=== PATIENT | female | born 1960 | race Caucasian/White ===

== ENCOUNTER 2020-07-05 17:38 | Outpatient (REF) | payer MEDICARE, MEDICAID, SELFPAY ==
--- NOTE | 2020-07-05 | MM_ITS ---
EXAMINATION: MM SCREENING DIGITAL BREAST TOMOSYNTHESIS, BILATERAL CLINICAL INFORMATION: Screening. Asymptomatic. Prior outside right stereotactic biopsy 2012. The lifetime risk of breast cancer based on the Tyrer-Cuzick Model is 13%. COMPARISON: Mammography: 12/15/2018, 12/13/2017, 12/10/2016 TECHNIQUE: Digital breast tomosynthesis is performed in both the craniocaudal and mediolateral oblique views along with computer-aided detection (CAD). Synthesized 2D images are generated from the tomosynthesis. FINDINGS: There are scattered areas of fibroglandular density (ACR BI-RADS breast composition Category b). There is no developing density or interval mass or architectural abnormality. Biopsy clip marker right breast upper outer quadrant with adjacent punctate regional calcifications are again seen. The axilla and skin contours are unremarkable. There are no significant changes from prior studies. MM/MM tomosynthesis screening BI IMPRESSION: No significant changes from prior exams. ASSESSMENT: BI-RADS 2: Benign RECOMMENDATION: Routine annual mammography screening. This patient's information was entered into a reminder system with a target due date for their next mammogram.
== END 2020-07-05 17:39 | disposition home or self-care (01) ==
LOC: HO.MAMMO 17:38
PROVIDERS: Visit Provider Family Medicine
DX: Z12.31 Encounter for screening mammogram for malignant neoplasm of breast (principal)
CPT/HCPCS: 77063; 77067

== ENCOUNTER 2020-08-03 12:32 | Outpatient (REF) | payer MEDICARE, MEDICAID, SELFPAY ==
[2020-08-03 14:11] LABS: Glucose Urine UA NEG (NEG); Leukocyte Esterase Urine 2+ (NEG); Nitrite Urine NEG (NEG); PH 6.5 (5.0-8.0); Specific Gravity - Urine <= 1.005 (1.005-1.025); Urine Blood 3+ (NEG); Urine Ketones NEG (NEG); Urine Protein NEG (NEG-TRACE)
[2020-08-03 14:14] LABS: Appearance Urine HAZY; Color Urine YELLOW
[2020-08-03 14:40] LABS: Bacteria Urine 1+ /LPF
== END 2020-08-03 12:33 | disposition home or self-care (01) ==
LOC: HO.LAB 12:32
PROVIDERS: PCP Family Medicine; Visit Provider Psychiatry & Neurology Neurology
DX: G35 Multiple sclerosis (principal)
CPT/HCPCS: 81001; 81003; 87086; 87088; 87186

== ENCOUNTER 2021-07-07 10:55 | Outpatient (REF) | payer MEDICARE, MEDICAID, SELFPAY ==
--- NOTE | ~2021-07-07 | MM_ITS ---
EXAMINATION: MM SCREENING DIGITAL BREAST TOMOSYNTHESIS, BILATERAL CLINICAL INFORMATION: Screening. Asymptomatic. The lifetime risk of breast cancer based on the Tyrer-Cuzick Model is 19%. COMPARISON: Mammography: 07/05/2020, 12/15/2018, 12/13/2017 TECHNIQUE: Digital breast tomosynthesis is performed in both the craniocaudal and mediolateral oblique views along with computer-aided detection (CAD). Synthesized 2D images are generated from the tomosynthesis. FINDINGS: There are scattered areas of fibroglandular density (ACR BI-RADS breast composition Category b). There are no significant masses, abnormal calcifications, or other abnormalities. Biopsy clip marker again seen right breast mid upper outer quadrant with some stable adjacent calcifications. There are some other scattered benign round and coarse and vascular calcifications in both breasts. The axilla and skin contours are unremarkable. MM/MM tomosynthesis screening BI IMPRESSION: No mammographic evidence of malignancy. ASSESSMENT: BI-RADS 2: Benign RECOMMENDATION: Routine annual mammography screening. This patient's information was entered into a reminder system with a target due date for their next mammogram.
== END 2021-07-07 10:56 | disposition home or self-care (01) ==
LOC: HO.MAMMO 10:55
PROVIDERS: Visit Provider Family Medicine
DX: Z12.31 Encounter for screening mammogram for malignant neoplasm of breast (principal)
CPT/HCPCS: 77063; 77067

== ENCOUNTER 2022-07-17 14:07 | Outpatient (REF) | payer MEDICARE, MEDICAID, SELFPAY ==
--- NOTE | ~2022-07-17 | MM_ITS ---
EXAMINATION: MM SCREENING DIGITAL BREAST TOMOSYNTHESIS, BILATERAL CLINICAL INFORMATION: Screening. Asymptomatic. The lifetime risk of breast cancer based on the Tyrer-Cuzick Model is 10%. COMPARISON: Mammography: 07/07/2021, 07/05/2020, 12/15/2018 TECHNIQUE: Digital breast tomosynthesis is performed in both the craniocaudal and mediolateral oblique views along with computer-aided detection (CAD). Synthesized 2D images are generated from the tomosynthesis. FINDINGS: There are scattered areas of fibroglandular density (ACR BI-RADS breast composition Category b). There are no significant masses, abnormal calcifications, or other abnormalities. Parenchymal pattern is similar to prior exams. There are scattered bilateral round calcification. Right breast has biopsy clip marker upper outer quadrant with adjacent residual calcifications similar to prior studies. The axilla and skin contours are unremarkable. MM/MM tomosynthesis screening BI IMPRESSION: No mammographic evidence of malignancy. ASSESSMENT: BI-RADS 2: Benign RECOMMENDATION: Routine annual mammography screening. This patient's information was entered into a reminder system with a target due date for their next mammogram.
== END 2022-07-17 14:08 | disposition home or self-care (01) ==
LOC: HO.MAMMO 14:07
PROVIDERS: PCP Family Medicine; Visit Provider Family Medicine
DX: Z12.31 Encounter for screening mammogram for malignant neoplasm of breast (principal)
CPT/HCPCS: 77063; 77067

== ENCOUNTER 2023-05-28 09:43 | Outpatient (REF) | payer MEDICARE, MEDICAID, SELFPAY ==
--- NOTE | ~2023-05-28 | CT_ITS ---
EXAMINATION: CT HEAD WITHOUT CONTRAST CLINICAL INFORMATION: Head injury. COMPARISON: None. TECHNIQUE: Contiguous axial imaging was performed from the skullbase to vertex without intravenous administration of contrast. This CT examination was performed using dose optimization techniques as appropriate, variously including the following: *Automated exposure control *Adjustment of mA and/or kV according to patient size (this includes techniques or standardized protocols for targeted exams where dose is matched to indication/reason for exam; i.e. extremities or head) *Use of iterative reconstruction technique DLP: 616 mGy-cm. FINDINGS: There is no evidence of acute intracranial hemorrhage or territorial infarction. No abnormal mass effect or midline shift is seen. Bryan to white matter differentiation is well preserved. No extra-axial fluid collections are identified. The ventricles are normal in size. There is no abnormal attenuation within the brain parenchyma. The soft tissues are normal. The mastoid air cells and visualized portions of the paranasal sinuses are well aerated. There are incidental jyjc-xj-qmrkzxpx degenerative changes in the condylar head of the left temporal mandibular joint. CT/CT head/brain wo IV con IMPRESSION: No acute intracranial pathology.
== END 2023-05-28 09:44 | disposition home or self-care (01) ==
LOC: HO.MAMMO 09:43
PROVIDERS: PCP Family Medicine; Visit Provider Internal Medicine Rheumatology
DX: Z13.820 Encounter for screening for osteoporosis (principal); S09.90XA Unspecified injury of head, initial encounter; Z78.0 Asymptomatic menopausal state
CPT/HCPCS: 70450; 77080

== ENCOUNTER 2023-07-22 10:00 | Outpatient (REF) | payer MEDICARE, MEDICAID, SELFPAY ==
--- NOTE | ~2023-07-22 | MM_ITS ---
EXAMINATION: MM SCREENING DIGITAL BREAST TOMOSYNTHESIS, BILATERAL CLINICAL INFORMATION: Screening. Asymptomatic. COMPARISON: Mammography: This study is compared with prior exams dating back to 2017. TECHNIQUE: Digital breast tomosynthesis is performed in both the craniocaudal and mediolateral oblique views along with computer-aided detection (CAD). Synthesized 2D images are generated from the tomosynthesis. FINDINGS: There are scattered areas of fibroglandular density (ACR BI-RADS breast composition Category b). There are no significant masses, abnormal calcifications, or other abnormalities. There is a tissue marker in the right breast from prior benign percutaneous biopsy. There are a few, bilateral, benign calcifications. MM/MM tomosynthesis screening BI IMPRESSION: No mammographic evidence of malignancy. ASSESSMENT: BI-RADS BI-RADS 2 - Benign Findings RECOMMENDATION: Routine annual mammography screening. 1 year F/U This examination should not preclude the clinical evaluation of a suspicious palpable abnormality. This patient's information was entered into a reminder system with a target due date for their next mammogram.
== END 2023-07-22 10:01 | disposition home or self-care (01) ==
LOC: HO.MAMMO 10:00
PROVIDERS: PCP Family Medicine; Visit Provider Family Medicine
DX: Z12.31 Encounter for screening mammogram for malignant neoplasm of breast (principal)
CPT/HCPCS: 77063; 77067

== ENCOUNTER → 2023-07-22 10:00 | Outpatient (BNV) | payer MEDICARE, MEDICAID, SELFPAY | PROVIDERS: PCP Family Medicine; Visit Provider Radiology Diagnostic Radiology | DX: Z12.31 Encounter for screening mammogram for malignant neoplasm of breast (principal) | CPT/HCPCS: 77063; 77067 ==

== ENCOUNTER 2024-07-31 08:55 | Outpatient (REF) | payer MEDICARE, MEDICAID, SELFPAY | END 2024-07-31 08:56 | disposition home or self-care (01) | LOC: HO.MAMMO 08:55 | PROVIDERS: PCP Family Medicine; Visit Provider Family Medicine | DX: Z12.31 Encounter for screening mammogram for malignant neoplasm of breast (principal) | CPT/HCPCS: 77063; 77067 ==

== ENCOUNTER → 2024-07-31 09:30 | Outpatient (BNV) | payer MEDICARE, MEDICAID, SELFPAY | PROVIDERS: PCP Family Medicine; Visit Provider Internal Medicine | DX: Z12.31 Encounter for screening mammogram for malignant neoplasm of breast (principal) | CPT/HCPCS: 77063; 77067 ==

== ENCOUNTER 2025-06-29 12:53 | Outpatient (AMB) | payer MEDICARE, MEDICAID, SELFPAY ==
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
--- OUTSIDE RECORDS SUMMARY | 2025-06-29 14:37 | XMS_ITS | Patient Health Record ---
Author Organization [facility] Address [address] [place] [id number] Care Team Providers Care Agricultural Aircraft Pilot Name Role Phone Reina BRAGG, Deena Primary Care Provider Un available Donnie Hernandez Jr Unavailable Allergies Allergen (clinical drug ingredient) Drug/Non Drug Allergy documented on EMR Reaction Allergy Type Onset Date Status Substance with sulfonamide structure and antibacterial mechanism of action (substance) Sulfa (uncoded) Unknown Allergy Active morphine Morphine (uncoded) Unknown Allergy A ctive Reason For Referral No Information Medications Medication SIG (Take, Route, Frequency, Duration) Notes Start Date End Date Status oxyCODONE-Acetaminophen Active Provigil Active LORazepam Active Gabapentin Active Zofran 4 MG 1 tablet Orally ever y 8 hours PRN/Nausea; Duration: 30 days 05/07/2013 Active Copaxone Active Promethazine HCl 08/19/2024 08/19/2024 A ctive Zofran 08/19/2024 08/19/2024 Active diazePAM Active Prochlorperazine Act levy Adderall Active Problems Problem Type SNOMED Code ICD Code Onset Dates Problem Status W/U Status Risk Notes Problem Gastroparesis (926972874) Gastroparesis (536.3) Active confirmed Problem Fatty liver (252934746) Fatty liver (571.8) Active confirmed Plan Of Treatment No Information Insurance Providers Payer Name Payer Address Payer Phone Subscriber Number Group Number Insured Name Patient Relationship to Insured Coverage Start Date Coverage End Date [facility] [address] [place], [place] [id number] [phone] [id number] RED DEL CID Self - patient is the insured Medical (General) History Medical History History ICD Code MS nausea Denies RI,DM,CVA,Lung disease,renal dise ase arthritis anxiety Clostridium difficile infection Surgical History Surgery Date(Month/Year) Disc Surgery L4-5 Appendix R knee,L knee Vein stripped
--- OUTSIDE RECORDS SUMMARY | 2025-06-29 14:37 | XMS_ITS | Encounter Summary ---
Author Organization [facility] Address [facility] [employer] [facility] [address] [place] [phone] Phone Care Team Providers Care Reporting Lead Name Role Phone Gena Rock MD Unavailable Diann Dior MD Unavailable [phone] Tremayne Dillon DO Unavailable Wendy Corral PA-C Unavailable Deena Huang MD Primary Care Provider Encounter Details Date Type Department Care Team (Late st Contact Info) Description 10/09/2022 Procedure [facility] [address] [place] [address] Social History Tobacco Use Types Packs/Day Years Used Date Smoking Tobacco: Never Smokeless Tobacco: Never Alcohol Use Standard Drinks/Week Comments No 0 (1 standard drink = 0.6 oz pur e alcohol) Comments No Sex and Gender Information Value Date Recorded Sex Assigned at Female 09/03/2023 2:20 PM EST Legal Sex Female 5:02 PM EST Gender Identity Female 09/03/2023 2:20 PM EST Sexual Orientation Straight 09/03/2023 2: 20 PM EST documented as of this encounter Plan of Treatment Upcoming Encounters Date Type Department Care Team (Late st Contact Info) Description 07/08/2025 9:30 AM EST Office Visit [facility] Rheumatology [address] [place] [address] Gena Rock MD [address] [address] 08/26/2025 3:40 PM EST Office Visit [facility] [place] [address] [place] [address] Rosangela Jimenez MD [address] [place] [phone] [email or web address] documented as of this encounter Visit Diagnoses Not on filedocumented in this encounter Care Teams Reporting Lead Relationship Specialty Start Date End Date Deena Huang MD [address] [place] [address] PCP - General 06/11/17 Gena Rock MD [address] [address] Historical LMR Provider 06/04/17 Diann Dior MD [address] [address] Historical LMR Provider 06/04/17 Tremayne Dillon DO [address] [place] [address] [facility], [place] [address] Historical LMR Provider 06/04/17 Wendy Corral PA-C [address] [place] [address] Orthopedics & Sports Medicine, [place] [address] [email or web address] Historical LMR Provider 06/04/17 documented as of this encounter Additional Source Comments The information contained in this document represents components of the legal health record. It is not the complete legal health record.[facility]
--- OUTSIDE RECORDS SUMMARY | 2025-06-29 14:37 | XMS_ITS | Encounter Summary ---
Author Organization [facility] Address [address] [place] [address] [place] [phone] Phone Care Team Providers Care Fashion Buying Internship Name Role Phone RosauraIrlandaGena Hopper MD Unavailable Diann Dior MD Unavailable [phone] Tremayne Dillon DO Unavailable Wendy Corral PA-C Unavailable Deena Huang MD Primary Care Provider Encounter Details Date Type Department Care Team (Late st Contact Info) Description 05/24/2023 Transcribe Orders Virtual Department [address] [place] [address] Deejay Uribe MD [address] [place] [address] [place] [address] Closed head injury, initial encounter (Primary Dx) Social History Tobacco Use Types Packs/Day Years Used Date Smoking Tobacco: Never Smokeless Tobacco: Never Alcohol Use Standard Drinks/Week Comments No 0 (1 standard drink = 0.6 oz pur e alcohol) Education Answer Date Recorded Are you interested in more education? Not on chayo e 12/18/2022 Are you concerned about learning? Not on file 12/18/2022 No 12/18/2022 No 12/18/2022 Digital Access Answer Date Recorded No 01/12/2023 No 01/12/2023 Reliable internet access at home? Not on file 01/12/2023 Device with a working camera? Not on file Intimate Partner Violence Answer Date R ecorded Are you denied basic needs s uch as food, clothing, or medical care? No 05/19/2023 In the past 12 months have y ou been in a relationship with a person who hurts, threatens, or tries to control you? No 05/19/2023 Are you denied basic needs s uch as food, clothing, or medical care? No 05/19/2023 In the past 12 months have y ou been in a relationship with a person who hurts, threatens, or tries to control you? No 05/19/2023 Comments No Sex and Gender Information Value [...] Description 07/08/2025 9:30 AM EST Office Visit [facility] Rheumatology [address] [place] [address] Gena Rock MD 22 [facility], [address] [place] [address] 08/26/2025 3:40 PM EST Office Visit [facility] [address] [address] Rosangela Jimenez MD [address] [place] [phone] [email or web address] documented as of this encounter Visit Diagnoses Diagnosis Closed head injury, initial encounter- Primary documented in this encounter Care Teams Fashion Buying Internship Relationship Specialty Start Date End Date Deena Huang MD [address] [place] [address] PCP - General 06/11/17 Gena Rock MD 22 [facility], [address] [place] [address] Historical LMR Provider 06/04/17 Diann Dior MD 22 [facility], [address] [place] [address] Historical LMR Provider 06/04/17 Tremayne Dillon DO 4 [facility] Orthopedics & Sports Medicine, [facility] [place] [address] Historical LMR Provider 06/04/17 Wendy Corral PA-C 4 [facility] Orthopedics & Sports Medicine, [facility] [place] [address] Historical LMR Provider 06/04/17 documented as of this encounter Additional Source Comments The information contained in this document represents components of the legal health record. It is not the complete legal health record.[facility]
--- OUTSIDE RECORDS SUMMARY | 2025-06-29 14:37 | XMS_ITS | Clinical Summary ---
Author Organization [facility] Address [address] [place] [id number] Phone Care Team Providers Care Superintendent Power Name Role Phone RosauraIrlandaGena Hopper MD Unavailable [phone] Diann Dior MD Unavailable [phone] Tremayne Dillon DO Unavailable [phone] Wendy Corral PA-C Unavailable [phone] Deena Huang MD Primary Care Provider Allergies Active Allergy Reactions Criticality Noted Date Comments Metoclopramide Hcl 01/07/2017 Bowels are uncontrolled Morphine Unknown 11/30/2011 Morphine Sulfate Itching 01/07/2017 Other Unknown 01/07/2017 Brannon Shellfish 01/07/2017 Other reaction(s): stomach upset Sulfa (Sulfonamide Antibiotics) Unknown 11/30/2011 Other reaction(s): headache Medications ondansetron (ZOFRAN-ODT) 4 MG disintegrating tablet Take 4 mg by mouth every 8 (eight) hours as needed for nausea. Active dextroamphetamine- amphetamine (ADDERALL) 5 mg Tab 10 mg 2 (two) times a day. Active dalfampridine (AMPYRA) 10 mg Tb12 ER tabletIndications: unsure strength Take 10 mg by mouth every 12 (twelve) hours. Do not divide, crush, chew, or dissolve. Doses should be taken approximatelt 12 hours apart. DO NOT take more than 2 doses in any 24 hour period. Indications: unsure strength Active glatiramer (COPAXONE) 40 mg/mL Syrg subcutaneous syringe Inject 40 mg under the skin 3 (three) times a week. Active gabapentin (NEURONTIN) 300 MG capsuleIndications :as needed 2 tabs Orally four times Indications: as needed Active levETIRAcetam (KEPPRA) 250 MG tablet Take 250 mg by mouth 2 (two) times a day. Active oxyCODONE 5 MG immediate release tablet Take 5 mg by mouth as needed for moderate pain. Active amantadine HCl (SYMMETREL) 100 mg capsule Take 1 capsule by mouth 2 (two) times a day. 07/16/20 21 Active propranoloL (INDERAL) 10 MG immediate release tablet Take 1 tablet by mouth 2 (two) times a day. 08/29/19 22 Active meclizine (ANTIVERT) 12.5 mg tablet Take 12.5 mg by mouth 3 (three) times a day as needed. Active triamcinolone acetonide 0.1 % cream APPLY TWICE A DAY TO AFFECTED AREAS NEEDED FOR 2WEEKS 02/24/20 22 Active ibuprofen (ADVIL,MOTRIN) 800 MG tablet TAKE 1 TABLET BY MOUTH THREE TIMES A DAY WITH FOOD OR MILK NEEDED FOR 30 DAYS 02/15/20 22 Active cromolyn (OPTICROM) 4 % ophthalmic solution Place 1 drop into each eye 4 (four) times a day as needed (itching). 10 mL 12 09/17/19 24 Active doxycycline monohydrate (MONODOX) 50 MG capsule Take 1 capsule (50 mg total) by mouth daily. 90 capsule 4 09/22/19 25 Active Hospital, Clinic, or Other Facility Administered Medication Ordered Dose Route Frequency Start Date End Date Status sodium hyaluronate (EUFLEXXA) injection syringe 20 mg 20 mg IAtc See admin instructions 04/09/2022 06/16/2025 Ended sodium hyaluronate (EUFLEXXA) injection syringe 20 mg 20 mg IAtc Once 06/02/2025 06/02/2025 Ended sodium hyaluronate (EUFLEXXA) injection syringe 20 mg 20 mg IAtc Once 06/02/2025 06/02/2025 Ended sodium hyaluronate (EUFLEXXA) injection syringe 20 mg 20 mg IAtc Once 06/09/2025 06/09/2025 Ended sodium hyaluronate (EUFLEXXA) injection syringe 20 mg 20 mg IAtc Once 06/09/2025 06/09/2025 Ended Active Problems Problem Noted Date Diagnosed Date Raynaud's disease without gangrene 07/03/2024 Assessment & Plan (12/31/2024 9:02 AM EDT): Keep warm, dress in layers. Optimize stress management strategies. Avoid vasoconstrictors in OTC products for cold/flu and sinus. Assessment & Plan (07/03/2024 10:37 AM EST): Keep warm, dress in layers. Optimize stress management strategies. Avoid vasoconstrictors in OTC products for cold/flu and sinus. Chronic prescription opiate use 07/03/2024 Assessment & Plan (12/31/2024 9:02 AM EDT): Take exactly as prescribed, try to limit frequency by employing non-for pharmacologic measures such as topical creams, warm packs, patches, regular relaxation/mediation/positive imagery sessions etc. Build up regular exercise routine up to the goal of 30-45 minutes daily. Monitor for increasing shortness of breath, reduced respiratory drive, increasing constipation Assessment & Plan (07/03/2024 10:41 AM EST): Take exactly as prescribed, try to limit frequency by employing non-for pharmacologic measures such as topical creams, warm packs, patches, regular relaxation/mediation/positive imagery sessions etc. Build up regular exercise routine up to the goal of 30-45 minutes daily. Monitor for increasing shortness of breath, reduced respiratory drive, increasing constipation Osteopenia 07/03/2023 Assessment & Plan (01/31/2025 6:51 PM EDT): Continue proper calcium and vitamin D supplementation + daily weightbearing exercises + fall and fracture prevention strategies. Interval BMD requested. Assessment & Plan (07/03/2024 10:41 AM EST): Continue proper calcium and vitamin D supplementation + daily weightbearing exercises + fall and fracture prevention strategies. Assessment & Plan (01/01/2024 10:36 AM EDT): Continue proper calcium and vitamin D supplementation + daily weightbearing exercises + fall and fracture prevention strategies. Assessment & Plan (07/06/2023 8:14 PM EST): Continue proper calcium and vitamin D supplementation + daily weightbearing exercises + fall and fracture prevention strategies. Cervical spondylosis 01/03/2023 Assessment & Plan (01/15/2023 10:33 AM EDT): Proper posture, neck support during the day and for nighttime. Use warm packs followed by gentle, regular exercises. Avoid prolonged bending or neck extension. Gentle massage, traction may provide additional benefit. Palpitations 10/06/2020 LOY positive 10/28/2019 Assessment & Plan (04/07/2020 8:50 AM EDT): I have reviewed with Nadira that low positive LOY in itself does not make any diagnosis but may be a risk factor for developing 1 of the systemic rheumatic diseases associated with positive LOY at some point in the future or alternatively may be a sign of already imperfect immune system in the course of multiple sclerosis versus sign of immunologic senescence versus a combination of both. Assessment & Plan (10/28/2019 1:32 PM EDT): I have reviewed with Nadira that low positive LOY in itself does not make any diagnosis but may be a risk factor for developing 1 of the systemic rheumatic diseases associated with positive LOY at some point in the future or alternatively may be a sign of already imperfect immune system in the course of multiple sclerosis versus sign of immunologic senescence versus a combination of both. Primary osteoarthritis involving multiple joints 03/02/2019 Assessment & Plan (12/31/2024 9:02 AM EDT): Joint protection, energy conservation. Gentle, regular exercise Avoid falls, injuries, overuse. Topical cream versus patch 2-3 times daily or at least at bedtime x 3 wks Consider formal physical therapy if not better or worse. Continue [employer] [facility] via cancer center offered by a history instructor Tonja Assessment & Plan (07/03/2024 10:40 AM EST): Joint protection, energy conservation. Gentle, regular exercise Avoid falls, injuries, overuse. Topical cream versus patch 2-3 times daily or at least at bedtime x 3 wks Consider formal physical therapy if not better or worse. Continue [employer] [facility] via cancer center offered by a history instructor Tonja Assessment & Plan (01/01/2024 10:21 AM EDT): Joint protection, energy conservation. Gentle, regular exercise Avoid falls, injuries, overuse. Topical cream versus patch 2-3 times daily or at least at bedtime x 3 wks Consider formal physical therapy if not better or worse. Continue [facility] via cancer center offered by a history instructor copygram Assessment & Plan (07/03/2023 11:00 AM EST): Joint protection, energy conservation. Gentle, regular exercise Avoid falls, injuries, overuse. Topical cream versus patch 2-3 times daily or at least at bedtime x 3 wks Consider formal physical therapy if not better or worse. Continue [employer] via cancer center offered by a history instructor Tonja Assessment & Plan (03/21/2022 8:33 AM EDT): Joint protection, energy conservation. Gentle, regular exercise Avoid falls, injuries, overuse. Topical cream versus patch 2-3 times daily or at least at bedtime x 3 wks Consider formal physical therapy if not better or worse. Continue [facility] via cancer center offered by a history instructor [employer] Assessment & Plan (10/06/2021 10:25 AM EST): Joint protection, energy conservation. Gentle, regular exercise Avoid falls, injuries, overuse. Topical cream versus patch 2-3 times daily or at least at bedtime x 3 wks Consider formal physical therapy if not better or worse. Continue [facility] via cancer center offered by a history instructor [employer] Assessment & Plan (04/12/2021 10:22 PM EDT): Joint protection, energy conservation. Gentle, regular exercise Avoid falls, injuries, overuse. Topical cream versus patch 2-3 times daily or at least at bedtime x 3 wks Consider formal physical therapy if not better or worse. Continue [facility] via cancer center offered by a history instructor Tonja Assessment & Plan (10/06/2020 9:01 AM EST): Joint protection, energy conservation. Gentle, regular exercise Avoid falls, injuries, overuse. Topical cream versus patch 2-3 times daily or at least at bedtime x 3 wks Consider formal physical therapy if not better or worse. She plans to join [employer] [facility] via cancer center offered by a history instructor Tonja Assessment & Plan (04/07/2020 8:49 AM EDT): Joint protection, energy conservation. Gentle, regular exercise Avoid falls, injuries, overuse. Topical cream versus patch 2-3 times daily or at least at bedtime x 3 wks Consider formal physical therapy if not better or worse. She plans to join [facility] [facility] via cancer center offered by a history instructor Tonja Assessment & Plan (10/28/2019 1:40 PM EDT): Joint protection, energy conservation. Gentle, regular exercise Avoid falls, injuries, overuse. Topical cream versus patch 2-3 times daily or at least at bedtime x 3 wks Consider formal physical therapy if not better or worse. She plans to join [facility] [facility] via cancer center offered by a history instructor Tonja Assessment & Plan (03/03/2019 6:18 PM EDT): Joint protection, energy conservation. Gentle, regular exercise Avoid falls, injuries, overuse. Topical cream versus patch 2-3 times daily or at least at bedtime x 3 wks Consider formal physical therapy if not better or worse. Vitamin D deficiency, unspecified 03/02/2019 Assessment & Plan (01/31/2025 6:53 PM EDT): Check serum level to make sure that she does not require additional adjustment in supplementation to keep serum level in optimal range: 40-45 ng/ml Assessment & Plan (03/21/2022 8:57 AM EDT): Check serum level to make sure that she does not require additional adjustment in supplementation to keep serum level in optimal range: 40-45 ng/ml Assessment & Plan (10/06/2021 10:27 AM EST): Check serum level to make sure that she does not require additional adjustment in supplementation to keep serum level in optimal range: 40-45 ng/ml Assessment & Plan (04/07/2020 8:50 AM EDT): Continue proper supplementation to replace insufficiency Assessment & Plan (10/07/2019 4:21 PM EST): Continue proper supplementation to replace insufficiency Assessment & Plan (03/03/2019 6:17 PM EDT): Continue proper supplementation to replace insufficiency NSAID long-term use 03/02/2019 Assessment & Plan (12/31/2024 9:02 AM EDT): Take the lowest dose, with least frequency, for shortest time. Remember to take it always with food. Favor topical over oral preparations. Assessment & Plan (07/03/2024 10:35 AM EST): Take the lowest dose, with least frequency, for shortest time. Remember to take it always with food. Favor topical over oral preparations. Assessment & Plan (03/03/2019 6:20 PM EDT): Take the lowest dose, with least frequency, for shortest time. Remember to take it always with food. Favor topical over oral preparations. Multiple sclerosis 09/01/2018 Assessment & Plan (12/31/2024 9:02 AM EDT): Continue Copaxone, Keppra and gabapentin as prescribed. Close follow-up with treating neurologist and PT as scheduled Assessment & Plan (07/03/2024 10:36 AM EST): Continue Copaxone, Keppra and gabapentin as prescribed. Close follow-up with treating neurologist and PT as scheduled Assessment & Plan (01/01/2024 10:24 AM EDT): Continue Copaxone, Keppra and gabapentin as prescribed. Close follow-up with treating neurologist and PT as scheduled Assessment & Plan (07/03/2023 11:06 AM EST): Continue Copaxone, Keppra and gabapentin as prescribed. Close follow-up with treating neurologist and PT as scheduled Assessment & Plan (01/03/2023 10:55 AM EDT): Continue Copaxone, Keppra and gabapentin as prescribed. Close follow-up with treating neurologist and PT as scheduled Assessment & Plan (10/06/2021 10:26 AM EST): Continue Copaxone, Keppra and gabapentin as prescribed. Close follow-up with treating neurologist and PT as scheduled Assessment & Plan (04/05/2021 9:09 AM EDT): Continue Copaxone, Keppra and gabapentin as prescribed. Close follow-up with treating neurologist and PT as scheduled Assessment & Plan (10/06/2020 9:02 AM EST): Continue Copaxone, Keppra and gabapentin as prescribed. Close follow-up with treating neurologist and PT as scheduled Assessment & Plan (04/07/2020 8:50 AM EDT): Continue Copaxone, Keppra and gabapentin as prescribed. Close follow-up with treating neurologist and PT as scheduled Assessment & Plan (10/07/2019 4:19 PM EST): Continue Copaxone, Keppra and gabapentin as prescribed. Close follow-up with treating neurologist and PT as scheduled Assessment & Plan (03/03/2019 6:19 PM EDT): Continue Copaxone, Keppra and gabapentin as prescribed. Close follow-up with treating neurologist and PT as scheduled Sicca syndrome 08/26/2017 Assessment & Plan (12/31/2024 9:01 AM EDT): Keep well-hydrated. Avoid spicy and acidic foods. Diligent eyes and mouth hygiene. Regular ocular and dental checkups. Assessment & Plan (07/03/2024 10:40 AM EST): Keep well-hydrated. Avoid spicy and acidic foods. Diligent eyes and mouth hygiene. Regular ocular and dental checkups. Assessment & Plan (01/01/2024 10:22 AM EDT): Keep well-hydrated. Avoid spicy and acidic foods. Diligent eyes and mouth hygiene. Regular ocular and dental checkups. Assessment & Plan (07/03/2023 11:08 AM EST): Keep well-hydrated. Avoid spicy and acidic foods. Diligent eyes and mouth hygiene. Regular ocular and dental checkups. Assessment & Plan (01/03/2023 10:56 AM EDT): Keep well-hydrated. Avoid spicy and acidic foods. Diligent eyes and mouth hygiene. Regular ocular and dental checkups. Assessment & Plan (03/21/2022 8:34 AM EDT): Keep well-hydrated. Avoid spicy and acidic foods. Diligent eyes and mouth hygiene. Regular ocular and dental checkups. Assessment & Plan (10/06/2021 10:26 AM EST): Keep well-hydrated. Avoid spicy and acidic foods. Diligent eyes and mouth hygiene. Regular ocular and dental checkups. Assessment & Plan (04/12/2021 10:21 PM EDT): Keep well-hydrated. Avoid spicy and acidic foods. Diligent eyes and mouth hygiene. Regular ocular and dental checkups. Assessment & Plan (10/06/2020 9:02 AM EST): Keep well-hydrated. Avoid spicy and acidic foods. Diligent mouth hygiene. Regular dental checkups. Assessment & Plan (04/07/2020 8:50 AM EDT): Keep well-hydrated. Avoid spicy and acidic foods. Diligent mouth hygiene. Regular dental checkups. Assessment & Plan (10/07/2019 4:19 PM EST): Keep well-hydrated. Avoid spicy and acidic foods. Diligent mouth hygiene. Regular dental checkups. Assessment & Plan (03/03/2019 6:18 PM EDT): Keep well-hydrated. Avoid spicy and acidic foods. Diligent mouth hygiene. Regular ocular and dental checkups. Chronic fatigue 08/26/2017 Assessment & Plan (01/03/2023 10:55 AM EDT): Balance rest and activity. Sleep hygiene. Keep well-hydrated. Well-balanced nutritionally diet. Keep engaged in regular hobbies/favorite activities. Avoid sick contacts. Keep up-to-date with age-appropriate screenings and preventive strategies. Assessment & Plan (03/03/2019 6:20 PM EDT): Balance rest and activity. Sleep hygiene. Keep well-hydrated. Well-balanced nutritionally diet. Keep engaged in regular hobbies/favorite activities. Avoid sick contacts. Keep up-to-date with age-appropriate screenings and preventive strategies. Chronic midline low back pain without sciatica 0 08/26/2017 Bilateral knee pain 07/16/2017 Primary localized osteoarthrosis of shoulder reg ion 07/16/2017 Resolved Problems Problem Noted Date Diagnosed Date Resolved Date Postmenopausal 01/03/2023 10/28/2023 Assessment & Plan (01/15/2023 10:34 AM EDT): Proper calcium and vitamin D supplementation. Fall and fracture prevention strategies. Daily weightbearing exercises. Vitamin D insufficiency 04/05/202110/17 Assessment & Plan (04/12/2021 10:23 PM EDT): Check serum level to make sure that she does not require additional adjustment in supplementation to keep serum level in optimal range: 40-45 ng/ml long term care social worker prescription opiate use 10/06/2020 03/21/2022 Assessment & Plan (03/21/2022 8:34 AM EDT): Take exactly as prescribed, try to limit frequency by employing non-for pharmacologic measures such as topical creams, warm packs, patches, regular relaxation/mediation/positive imagery sessions etc. Build up regular exercise routine up to the goal of 30-45 minutes daily. Monitor for increasing shortness of breath, reduced respiratory drive, increasing constipation Assessment & Plan (10/06/2020 9:03 AM EST): Take exactly as prescribed, try to limit frequency by employing non-for pharmacologic measures such as topical creams, warm packs, patches, regular relaxation/mediation/positive imagery sessions etc. Build up regular exercise routine up to the goal of 30-45 minutes daily. Monitor for increasing shortness of breath, reduced respiratory drive, increasing constipation Primary osteoarthritis of both knees 05/06/2019 10/28/2023 Assessment & Plan (10/06/2020 9:01 AM EST): Joint protection, energy conservation. Gentle, regular exercise Avoid falls, injuries, overuse. Topical cream versus patch 2-3 times daily or at least at bedtime x 3 wks Consider formal physical therapy if not better or worse. She plans to join [employer] [facility] offered by a history instructor Tonja Plantar fasciitis, right 09/01/201806/2024 Left foot pain 08/26/2017 10/28/2023 Right foot pain 08/26/2017 10/28/2023 Varicose veins of lower extremity 08/15/2012 10/28/2023 Overview (10/09/2014): Varicose veins of lower extremity Assessment & Plan (10/07/2019 4:20 PM EST): Keep weight in ideal range for her height. Regular walking. Elevate feet above the heart level every 2-3 hours for 10-15 minutes and apply ice pack over towel. Consider wearing supportive stockings. Assessment & Plan (03/03/2019 6:17 PM EDT): Keep weight in ideal range for her height. Regular walking. Elevate feet above the heart level every 2-3 hours for 10-15 minutes and apply ice pack over towel. Consider wearing supportive stockings. Encounters Date Type Department Care Team Description 06/16/2025 2:00 PM EDT Office Visit [facility] Orthopedics & [facility] Medicine [address] [place] [id number] Marciano Bhakta PA-C Primary osteoarthritis of right knee (Primary Dx); Primary osteoarthritis of left knee 06/09/2025 2:00 PM EDT Office Visit [facility] [address] [place] [id number] Marciano Bhakta PA-C Primary osteoarthritis of right knee (Primary Dx); Primary osteoarthritis of left knee 06/02/2025 2:00 PM EDT Office Visit [facility] [address] [place] [phone] Marciano Bhakta PA-C Primary osteoarthritis of right knee (Primary Dx); Primary osteoarthritis of left knee 04/07/2025 Telephone [facility] Medicine [address] [place] [phone] Paul Morgan PA-C Euflexxa - Bilat - Mark, PA from Last 3 Months Family History Medical History Relation Comments Heart attack Father Relation Status Comments Father Mother Social History Tobacco Use Types Packs/Day Years Used Date Smoking Tobacco: Never Smokeless Tobacco: Never Tobacco Cessation:Counseling Given: Not Answered Alcohol Use Standard Drinks/Week Comments No 0 [...] Orientation Straight 09/03/2023 2: 20 PM EST Last Filed Vital Signs Vital Sign Reading Time Taken Comments Blood Pressure 120/80 12/31/2024 9:00 AM EDT Pulse 72 12/31/2024 9:00 AM EDT Temperature 36.7 C (98 F) 05/19/2023 4:32 PM EDT Respiratory Rate 16 05/19/2023 4:32 PM EDT Oxygen Saturation 99% 12/31/2024 9:00 AM EDT Inhaled Oxygen Concentration - - Weight 76.5 kg (168 lb 9.6 oz) 12/31/2024 9:00 A M EDT Height 167.6 cm (5' 6 ) 12/31/2024 9:00 AM EDT Body Mass Index 27.21 12/31/2024 9:00 AM EDT Plan of Treatment Upcoming Encounters Date Type Department Care Team (Late st Contact Info) Description 07/08/2025 9:30 AM EST Office Visit [facility] Rheumatology [address] [place] [address] Gena Rock MD [address] [facility], [address] [place] [address] 08/26/2025 3:40 PM EST Office Visit [facility] [address] [place] [phone] Rosangela Jimenez MD [address] [place] [phone] [email or web address] Health Maintenance Due Date Last Done Comments DEPRESSION SCREENING 1972 HEPATITIS C SCREENING 1978 HIV ONE-TIME SCREENING (18-6 5 YEARS) 1978 COLOGUARD 2005 FIT TEST 2005 FOBT 2005 SIGMOIDOSCOPY 2005 VIRTUAL COLONOSCOPY 2005 PNEUMOCOCCAL VACCINES (50+ years) (1 of 1 - PCV) 2010 MAMMOGRAM 12/01/2016 12/02/2015 INFLUENZA VACCINE (#1) 2025 COVID-19 VACCINE (3 - 2024-2 6 season) 2025 04/27/2021, 04/06/2021 LIPID PANEL 01/19/2026 01/19/2021 SCREENING FOR DIABETES 01/01/2028 12/31/2024 PAP SMEAR 10/27/2028 10/28/2023, 12/02/2015 Adult Td,Tdap Booster 06/02/2031 06/02/2021 COLONOSCOPY 10/09/2032 10/09/2022, 03/22/2016, 11/30/2011 COLORECTAL CANCER SCREENING 10/09/2032 RSV VACCINE (1 - 1-dose 75+ series) 2035 ZOSTER VACCINES Completed 06/04/2023, 03/28/2023 OSTEOPOROSIS SCREENING INITI AL (ONE-TIME) Completed 12/31/2024 SMOKING STATUS SCREENING (On ce After 26 Yrs) Completed 06/16/2025 HEPATITIS A VACCINES Aged Out No long er eligible based on patient's age to complete this topic HIB VACCINES Aged Out No longer eligi ble based on patient's age to complete this topic IPV VACCINES Aged Out No longer eligi ble based on patient's age to complete this topic MENINGOCOCCAL VACCINES (ACWY) Aged Out No longer eligible based on patient's age to complete this topic MENINGOCOCCAL VACCINES (B) Aged Out N o longer eligible based on patient's age to complete this topic Medical Devices Not on file Procedures Procedure Name Priority Date/Time Associated Diagnosis Comments BD DXA SCREENING Routine 12/31/2024 10:2 9 AM EDT Osteopenia PAP TEST Routine 10/28/2023 12:00 AM EDT ENDOSCOPY, COLON 10/09/2022 1:25 PM EST LIPID PANEL Routine 01/19/2021 5:20 PM EDT Routine health maintenance from Last 3 Months or Most Recently Relevant to Health Maintenance Results * Pap Test (10/28/2023 12:00 AM EDT) Report [address] [id number] Bulk Mail Clerk: Shilpi Brumfield MD ACETYLENE BURNER Cytology Report FINAL DIAGNOSIS A. PAP SMEAR (SUREPATH) CE: SPECIMEN ADEQUACY: Satisfactory for evaluation; transformation zone present. INTERPRETATION: NEGATIVE FOR INTRAEPITHELIAL LESION OR MALIGNANCY. Atrophy. Electronically Signed Out By: DARCIE Parker(ASCP) The Pap test is a screening test primarily for squamous cancers and precursors and has associated false-negative and false-positive results. New technologies such as liquid-based preparations may decrease but will not eliminate all false-negative results. Regular sampling and follow-up of unexplained clinical signs and symptoms are recommended to minimize false negative results. PROCEDURES/ADDENDA HPV Testing (Requested) Ordered Date: 10/29/2023 A. PAP SMEAR (SUREPATH) CE: Human Papilloma Virus Test NEGATIVE for high-risk Human Papilloma Virus types 16, 18, 45 and the Other high risk probe set (Includes 31, 33, 35, 39, 51, 52, 56, 58, 59, 66, 68) Note: Testing performed by Nexant Onclarity HR-HPV analysis. Clinical correlation is advised. This HPV test was performed at [facility], [address] [place] [address]. This test has been FDA approved for both SurePath and ThinPrep cervical cytology specimens. The accuracy and precision of this test for all other specimen sources has been verified in the Cytopathology Laboratory of the [facility] and has not been cleared or approved by the U.S. Food and Drug Administration. Clinical correlation is advised. CLINICAL HISTORY Date of Last Menstrual Period: Not Provided Menstrual History: Post Menopausal Other Clinical Conditions: Screening Pap SPECIMEN SOURCE A: PAP SMEAR (SUREPATH) CE Patient Name: NADIRA DAVIS : 1960 (Age: 63) Sex: F Institution: [facility] Location: [facility] Date of Collection: 10/28/2023 Date of Reported: 11/01/2023 10:47 Results to: Diann Dior MD [facility] Final Diagnosis A. PAP SMEAR (SUREPATH) CE: SPECIMEN ADEQUACY: Satisfactory for evaluation; transformation zone present. INTERPRETATION: NEGATIVE FOR INTRAEPITHELIAL LESION OR MALIGNANCY. Atrophy. [facility] Results\Inter pretation A. PAP SMEAR (SUREPATH) CE: Human Papilloma Virus TestNEGATIVE for high-risk Human Papilloma Virus types 16, 18, 45 and the Other high risk probe set (Includes 31, 33, 35, 39, 51, 52, 56, 58, 59, 66, 68)Note: Testing performed by enGene HR-HPV analysis. Clinical correlation is advised. This HPV test was performed at [facility], [address] [place] [address]. This test has been FDA approved for both SurePath and ThinPrep cervical cytology specimens. The accuracy and precision of this test for all other specimen sources has been verified in the Cytopathology Laboratory of the [facility] and has not been cleared or approved by the U.S. Food and Drug Administration. Clinical correlation is advised. [facility] Conversion Type (Conversion Source) 10/28/2023 10/29/2023 8:10 AM EDT us Diann Dior MD CYTOLOGY ORDERABLES Edited Re sult - Final [address] [address] * ENDOSCOPY, COLON (10/09/2022 1:25 PM EST) Narrative Transcriptions Ruchi Dong MD - 10/09/2022 1:25 PM EST [facility] Patient Name: Nadira Davis Procedure Date: 10/09/2022 1:25 PM Date of : 1960 Procedure: Colonoscopy Indications: Personal history of colonic polyps Providers: Ruchi Dong MD, Tiny Colón Referring MD: Deena Huang (Referring MD) Medicines: Midazolam 4 mg IV, Fentanyl 75 micrograms IV Complications: No immediate complications. Procedure: Pre-Anesthesia Assessment: - Prior to the procedure, a History and Physicalwas performed, and patient medications, allergies and sensitivities were reviewed. The patient'stolerance of previous anesthesia was reviewed. - The risks and benefits of the procedure and the sedation options and risks were discussed with the patient. All questions were answered and informed consent was obtained. - Patient identification and proposed procedurewere verified prior to the procedure by the physicianand the nurse. The procedure was verified in theprocedure room. - ASA Grade Assessment: II - A patient with mild systemic disease. - After reviewing the risks and benefits, thepatient was deemed in satisfactory condition to undergo the procedure. - The anesthesia plan was to use moderate sedation/analgesia (conscious sedation). - Immediately prior to administration ofmedications, the patient was re-assessed for adequacy to receive sedatives. - Sedation was administered by an endoscopy nurse.The sedation level attained was moderate. - The heart rate, respiratory rate, oxygen saturations, blood pressure, adequacy of pulmonary ventilation, and response to care were monitored throughout the procedure. - The physical status of the patient wasre-assessed after the procedure. After obtaining informed consent, the colonoscopewas passed under direct vision. Throughout theprocedure, the patient's blood pressure, pulse, and oxygen saturations were monitored continuously. The Colonoscope was introduced through the anus and advanced to the the terminal ileum. The colonoscopy was performed without difficulty. The patient tolerated the procedure well. The quality of thebowel preparation was good. The terminal ileum, ileocecal valve, appendiceal orifice, and rectum were photographed. Findings: Internal hemorrhoids were found during retroflexion. The hemorrhoids were Grade I (internal hemorrhoids that do not prolapse). Multiple small and large-mouthed diverticula were found in thesigmoid colon and descending colon. There was no evidence of diverticular bleeding. The terminal ileum appeared normal. Moderate Sedation: Moderate (conscious) sedation was administered by the endoscopy nurse and supervised by the endoscopist. The following parameters were monitored: oxygen saturation, heart rate, blood pressure, respiratory rate, EKG, adequacy of pulmonary ventilation, and response to care. Total physician intraservice time was 29 minutes. Impression: - Internal hemorrhoids. - Moderate diverticulosis in the sigmoid colon andin the descending colon. There was no evidence of diverticular bleeding. - The examined portion of the ileum was normal. - No specimens collected. Recommendation: - Repeat colonoscopy in 5 years for surveillance. - High fiber diet indefinitely. Ruchi Dong MD [id number] Ruchi Dong MD 10/09/2022 2:31:58 PM This report has been electronically signed. I was present during the entire viewing portion of this exam. Number of Addenda: 0 Note Initiated On: 10/09/2022 1:25 PM Deena Huang MD GI PROCEDURE ORDERABLES Final Result * (ABNORMAL) Lipid panel (01/19/2021 5:20 PM EDT) CHOLESTEROL 217(H) <200 mg/dL [facility] TRIGLYCERIDES 60 35 - 150 mg/dL [facility] HDL 89(H) 40 - 80 mg/dL [facility] CALCULATED LDL 116 50 - 129 mg/dL [facility] VLDL 12 mg/dL [facility] CARDIAC RISK RATIO 2.4 0.0 - 4.0 [facility] 01/19/2021 5:20 PM EDT 01/19/2021 5:32 PM EDT Ema Will MD, MSc LAB BLOOD BKR ORDERABLES Fin al Result [facility] [address] [place] [address] from Last 3 Months or Most Recently Relevant to Health Maintenance Insurance [employer] MEDICARE PART A & B [place] & [place] & [place] [address] [place] [address]HEALTH MEDICARE PART A & B [place] MEDICARE PART A & [place] [address] [address] [place] [address] MEDICARE PART A & B [place] & B Care Teams Superintendent Power Relationship Specialty Start Date End Date Deena Huang MD [address] [place] [address] PCP - General 06/11/17 Gena Rock MD [address] [place] [address] [address] [place] [address] Historical LMR Provider 06/04/17 Diann Dior MD [address] [place] [address] Historical LMR Provider 06/04/17 Tremayne Dillon DO [address] [place] [address] Orthopedics & Sports Medicine, [place] [address] [email or web address] Historical LMR Provider 06/04/17 Wendy Corral PA-C [address] [place] [address] Orthopedics & Sports Medicine, [facility] [place] [address] [email or web address] Historical LMR Provider 06/04/17 Additional Source Comments The information contained in this document represents components of the legal health record. It is not the complete legal health record.[facility]
--- OUTSIDE RECORDS SUMMARY | 2025-06-29 14:37 | XMS_ITS | Encounter Summary ---
Author Organization [facility] Address [address] [place] [address] Phone Care Team Providers Care Operator Weapon Locating Radar Name Role Phone Krystle Carlin Unavailable [phone] Deena Huang MD Unavailable Gena Rock MD Unavailable [phone] Diann Dior MD Unavailable Tremayne Mckinnon MD Unavailable Tremayne Dillon DO Unavailable [phone] Shala Meneses MD Unavailable [phone] Wendy Corral PA-C Unavailable Devante Jones MD Unavailable [phone] Shilpi Mcdonald MD Unavailable [phone] Deena Huang MD Primary Care Provider Encounter Details Date Type Department Care Team (Late st Contact Info) Description 07/17/2017 Transcribe Orders [facility] Lab Main [address] [place] [address] Sommer Frazier MD [address] [place], [place] [phone] Other specified disorders of the skin and subcutaneous tissue (Primary Dx); Impetigo Social History Tobacco Use Types Packs/Day Years Used Date Smoking Tobacco: Never Smokeless Tobacco: Never Alcohol Use Standard Drinks/Week Comments No 0 (1 standard drink = 0.6 oz pur e alcohol) Comments Unknown Sex and Gender Information Value Date Recorded Sex Assigned at Female 09/03/2023 2:20 PM EST Legal Sex Female 5:02 PM EST Gender Identity Female 09/03/2023 2:20 PM EST Sexual Orientation Straight 09/03/2023 2: 20 PM EST documented as of this encounter Plan of Treatment Upcoming Encounters Date Type Department Care Team (Late st Contact Info) Description 07/08/2025 9:30 AM EST Office Visit [facility] Rheumatology [address] [place] [address] Gena Rock MD 22 [facility], [address] [place] [address] 08/26/2025 3:40 PM EST Office Visit [facility] [place] [address] [place] [address] Rosangela Jimenez MD [address] [place] [email or web address] documented as of this encounter Results * (ABNORMAL) Wound culture/smear (07/17/2017 1:30 PM EST) Specimen Source/ Description NARES RIGHT NARIS NARES [facility] Special Requests None [facility] GRAM STAIN NO ORGANISMS SEEN C [facility] Culture/Test Few STAPHYLOCOCCUS AUREUS(A) [facility] Report Status 07/19/2017 FINAL [facility] ORGANISM STAPHYLOCOCCUS AUREUS [facility] Other (Nares) 07/17/2017 1:3 0 PM EST 07/17/2017 4:45 PM EST Narrative Organism Antibiotic Method Susceptibility Staphylococcus aureus Penicillin G [facility] METHOD >=0.5: Resistant Staphylococcus aureus Clindamycin [facility] METHOD <=0.25: Resistant Staphylococcus aureus Erythromycin [facility] METHOD 2: Resistant Staphylococcus aureus Gentamicin [facility] METHOD <=0.5: Susceptible Staphylococcus aureus Inducible Clindamy saad Resistance [facility] METHOD Positive Staphylococcus aureus Levofloxacin [facility] METHOD <=0.12: Susceptible Staphylococcus aureus Oxacillin(methicillin) [facility] M ETHOD 0.5: Susceptible Staphylococcus aureus Quinupristin-dalfo prist in [facility] METHOD 0.5: Susceptible Staphylococcus aureus Rifampin [facility] METHOD <=0.5: Susceptible Staphylococcus aureus Tetracycline [facility] METHOD <=1: Susceptible Staphylococcus aureus Trimethoprim/sulfa metho xazole [facility] METHOD <=10: Susceptible Staphylococcus aureus Vancomycin [facility] METHOD 1: Susceptible Staphylococcus aureus Cefoxitin Screen [facility] METHOD Negative Comment:Few STAPHYLOCOCCUS A UREUS us Sommer Frazier MD LAB MICROBIOLOGY CULTURE OR DERABLES Final Result [facility] [address] [place] [address] documented in this encounter Visit Diagnoses Diagnosis Other specified disorders of the skin and subcutaneous tissue- Primary Impetigo documented in this encounter Care Teams Operator Weapon Locating Radar Relationship Specialty Start Date End Date Deena Huang MD [address] [place] [address] PCP - General 06/11/17 Krystle Carlin [place] [address] [place] [address] Historical LMR Provider 06/04/17 2 Deena Huang MD [address] [place] [address] [email or web address] Historical LMR Provider 06/04/17 Gena Rock MD [address] [place] [address], [facility] [address] [place] [address] Historical LMR Provider 06/04/17 Diann Dior MD 22 [facility], [address] [place] [address] [email or web address] Historical LMR Provider 06/04/17 Tremayne Mckinnon MD [address] [place] [address] Historical LMR Provider 06/04/17 Tremayne Dillon DO [address] [place] [address] Orthopedics & Sports [facility], [place] [address] [email or web address] Historical LMR Provider 06/04/17 Shala Meneses MD 15 [facility], 2nd [place] [address] [email or web address] Historical LMR Provider 06/04/17 Wendy Corral PA-C [address] [place] [address] Orthopedics & Sports [facility], [place] [address] [email or web address] Historical LMR Provider 06/04/17 Devante Jones MD [address] [place] [phone] Historical LMR Provider 06/04/17 2 Shilpi Mcdonald MD [address] [address] [email or web address] Historical LMR Provider 06/04/17 08/26/21 documented as of this encounter Additional Source Comments The information contained in this document represents components of the legal health record. It is not the complete legal health record.[facility]
--- OUTSIDE RECORDS SUMMARY | 2025-06-29 14:37 | XMS_ITS | Encounter Summary ---
Author Organization [facility] Address [facility] [employer] [facility] [address] [place] [address] Phone Care Team Providers Care Chef Manager Name Role Phone RosauraIrlandaGena Hopper MD Unavailable [phone] Diann Dior MD Unavailable Tremayne Dillon DO Unavailable [phone] Wendy Corral PA-C Unavailable Deena Huang MD Primary Care Provider Encounter Details Date Type Department Care Team (Late st Contact Info) Description 11/15/2023 Ancillary Orders [facility] - [address] [address] Deejay Uribe MD [address] [place] [address] [place] [address] Multiple sclerosis (Primary Dx) Social History Tobacco Use Types [...] Description 07/08/2025 9:30 AM EST Office Visit [facility] Rheumatology [address] [place] [address] Gena Rock MD 22 [facility], [address] [place] [address] 08/26/2025 3:40 PM EST Office Visit [facility] [address] [address] Rosangela Jimenez MD [address] [place] [place] [address] [email or web address] documented as of this encounter Results * XR HIP 2 VW RIGHT PLUS PELVIS (11/18/2023 2:24 PM EDT) Anatomical Region Laterality Modality Hip Right Computed Radiogr aphy 11/21/2023 12:4 3 AM EDT Impressions 11/21/2023 12:44 AM EDT Mild degenerative changes. Mild to moderate lower lumbar spine degenerative change. Narrative 11/21/2023 12:44 AM EDT XR HIP 2-3 VW LEFT, XR HIP 2 VW RIGHT PLUS PELVIS Referring clinician's provided indication for this examination in [facility]: Other Indication (Please use free text); multiple sclerosis REQUESTED INDICATION: Other Indication (Please use free text); multiple sclerosis COMPARISON: None FINDINGS: PELVIS: Pelvic ring intact. No displaced fracture. Degenerative changes of the lower lumbar spine, sacroiliac joints, and pubic symphysis. RIGHT HIP: Mild joint space narrowing. LEFT HIP: Mild joint space narrowing. Procedure Note Minh Jama MD - 11/21/2023 XR HIP 2-3 VW LEFT, XR HIP 2 VW RIGHT PLUS PELVIS Referring clinician's provided indication for this examination in [facility]:Other Indication (Please use free text); multiple sclerosis REQUESTED INDICATION: Other Indication (Please use free text); multiplesclerosis COMPARISON: None FINDINGS: PELVIS: Pelvic ring intact. No displaced fracture. Degenerative changes ofthe lower lumbar spine, sacroiliac joints, and pubic symphysis. RIGHT HIP: Mild joint space narrowing. LEFT HIP: Mild joint space narrowing. IMPRESSION: Mild degenerative changes. Mild to moderate lower lumbar spine degenerative change. [facility] Terri Uribe MD IMG XR PELVIS Fi nal Result * XR HIP 2-3 VW LEFT (11/18/2023 2:22 PM EDT) Anatomical Region Laterality Modality Hip Left Computed Radiogr aphy 11/21/2023 12:4 3 AM EDT Impressions 11/21/2023 12:44 AM EDT Mild degenerative changes. Mild to moderate lower lumbar spine degenerative change. Narrative 11/21/2023 12:44 AM EDT XR HIP 2-3 VW LEFT, XR HIP 2 VW RIGHT PLUS PELVIS Referring clinician's provided indication for this examination in [facility]: Other Indication (Please use free text); multiple sclerosis REQUESTED INDICATION: Other Indication (Please use free text); multiple sclerosis COMPARISON: None FINDINGS: PELVIS: Pelvic ring intact. No displaced fracture. Degenerative changes of the lower lumbar spine, sacroiliac joints, and pubic symphysis. RIGHT HIP: Mild joint space narrowing. LEFT HIP: Mild joint space narrowing. Procedure Note Minh Jama MD - 11/21/2023 XR HIP 2-3 VW LEFT, XR HIP 2 VW RIGHT PLUS PELVIS Referring clinician's provided indication for this examination in [facility]:Other Indication (Please use free text); multiple sclerosis REQUESTED INDICATION: Other Indication (Please use free text); multiplesclerosis COMPARISON: None FINDINGS: PELVIS: Pelvic ring intact. No displaced fracture. Degenerative changes ofthe lower lumbar spine, sacroiliac joints, and pubic symphysis. RIGHT HIP: Mild joint space narrowing. LEFT HIP: Mild joint space narrowing. IMPRESSION: Mild degenerative changes. Mild to moderate lower lumbar spine degenerative change. [facility] Terri Uribe MD IMG XR PELVIS Fi nal Result documented in this encounter Visit Diagnoses Diagnosis Multiple sclerosis- Primary Multiple sclerosis Multiple sclerosis documented in this encounter Care Teams Chef Manager Relationship Specialty Start Date End Date Deena Huang MD [address] [place] [address] PCP - General 06/11/17 Gena Rock MD [address] [place] [address] Historical LMR Provider 06/04/17 Diann Dior MD [address] [place] [address] Historical LMR Provider 06/04/17 Tremayne Dillon DO 4 [facility] Orthopedics & Sports [facility] [place], [place] [phone] Historical LMR Provider 06/04/17 Wendy Corral PA-C 4 [facility] Orthopedics Sports [facility] [place] [address] [email or web address] Historical LMR Provider 06/04/17 documented as of this encounter Additional Source Comments The information contained in this document represents components of the legal health record. It is not the complete legal health record.[facility]
--- OUTSIDE RECORDS SUMMARY | 2025-06-29 14:37 | XMS_ITS | Encounter Summary ---
Author Organization [facility] Address [address] [place] [address] Phone Care Team Providers Care Gasoline Service Attendant Name Role Phone Krystle Carlin Unavailable [phone] Deena Huang MD Unavailable [phone] Gena Rock MD Unavailable Diann Dior MD Unavailable Tremayne Mckinnon MD Unavailable Tremayne Dillon DO Unavailable [phone] Shala Meneses MD Unavailable [phone] Wendy Corral PA-C Unavailable [phone] Devante Jones MD Unavailable [phone] Shilpi Mcdonald MD Unavailable [phone] Deena Huang MD Primary Care Provider Encounter Details Date Type Department Care Team (Late st Contact Info) Description 09/23/2017 Transcribe Orders [facility] Specimen Processing [address] [place], [place] [phone] Sommer Frazier MD [address] [place], [place] [id number] Impetigo (Primary Dx) Social History Tobacco Use Types [...] Description 07/08/2025 9:30 AM EST Office Visit [facility] Rheumatology [address] [place] [address] Gena Rock MD 22 [facility], [address] [place] [address] 08/26/2025 3:40 PM EST Office Visit [facility] [address] [address] Rosangela Jimenez MD [address] [place] [phone] [email or web address] documented as of this encounter Results * (ABNORMAL) Wound culture/smear (09/23/2017 9:00 AM EST) Specimen Source/ Description NASAL SWAB NASAL [facility] Special Requests None [facility] GRAM STAIN NO CELLS OR ORGANISMS [facility] Culture/Test MIXED ORGANISMS RESEMBLING CUTANEOUS KALEB(A) [facility] Report Status 09/25/2017 FINAL [facility] Other (Nasal) 09/23/2017 9:0 0 AM EST 09/23/2017 5:54 PM EST us Sommer Frazier MD LAB MICROBIOLOGY CULTURE OR DERABLES Final Result [facility] [address] [place] [address] documented in this encounter Visit Diagnoses Diagnosis Impetigo- Primary documented in this encounter Care Teams Gasoline Service Attendant Relationship Specialty Start Date End Date Deena Huang MD [address] [place] [address] PCP - General 06/11/17 Krystle Carlin PA [facility] [place] [address] Historical LMR Provider 06/04/17 2 Deena Huang MD [address] [place] [address] Historical LMR Provider 06/04/17 Gena Rock MD [address] [address] [email or web address] Historical LMR Provider 06/04/17 Diann Dior MD [address] [address] Historical LMR Provider 06/04/17 Tremayne Mckinnon MD [address] [place] [address] Historical LMR Provider 06/04/17 Tremayne Dillon DO [address] [place] [address] Orthopedics & Sports Medicine, [place] [address] Historical LMR Provider 06/04/17 Shala Meneses MD [address] [place] [address], [place] [address] Historical LMR Provider 06/04/17 Wendy Corral PA-C 4 [facility] Orthopedics & Sports Medicine, [place] [address] [email or web address] Historical LMR Provider 06/04/17 Devante Jones MD [address] [place] [address] Historical LMR Provider 06/04/17 2 Shilpi Mcdonald MD [address] [address] [email or web address] Historical LMR Provider 06/04/17 08/26/21 documented as of this encounter Additional Source Comments The information contained in this document represents components of the legal health record. It is not the complete legal health record.[facility]
== END 2025-06-29 13:22 | disposition home or self-care (01) ==
PROVIDERS: Referring Provider Family Medicine; Visit Provider Psychiatry & Neurology Neurology
DX: G35.D Multiple sclerosis, unspecified (principal); M50.90 Cervical disc disorder, unspecified, unspecified cervical region
CPT/HCPCS: 99214

== ENCOUNTER → 2025-06-29 12:53 | Outpatient (BNVA) | payer MEDICARE, MEDICAID, SELFPAY | PROVIDERS: Referring Provider Family Medicine; Visit Provider Psychiatry & Neurology Neurology | DX: G35.D Multiple sclerosis, unspecified (principal); M50.90 Cervical disc disorder, unspecified, unspecified cervical region | CPT/HCPCS: 99212 ==

== ENCOUNTER 2025-08-04 09:43 | Outpatient (REF) | payer MEDICARE, MEDICAID, SELFPAY ==
--- NOTE | ~2025-08-04 | MM_ITS ---
EXAMINATION: DXA BONE DENSITY AXIAL HISTORY: OSTEOPENIA/SCREENING TECHNIQUE: Transave Dual energy absorptiometry (DEXA) of the lumbar spine, total left hip, and femoral neck was performed. COMPARISON: Comparison is made with the prior examination dated 05/28/2023. FINDINGS: The bone mineral density of the lumbar spine is 1.322 g/cm2, corresponding to a T-score of 1.0, and a Z-score of 2.4. This is indicative of normal bone mineral density. This represents a BMD change of 1.6% compared to the prior exam. This is not statistically significant. The bone mineral density of the left total hip is 0.770 g/cm2, corresponding to a T-score of -1.9, and a Z-score of -0.9. This is indicative of osteopenia. This represents a BMD change of 3.8% compared to the prior exam. This is not statistically significant. The bone mineral density of the left femoral neck is 0.820 g/cm2, corresponding to a T-score of -1.6, and a Z-score of -0.3. This is indicative of osteopenia. This represents a BMD change of 4.2% compared to the prior exam. FRACTURE RISK: The FRAX index suggests a ten year probability of major osteoporotic fracture of 9.3%, and of hip fracture 1.1%. MM/XR DEXA axial skeleton IMPRESSION: Based on bone mineral density, and according to World Health Organization (WHO) criteria, the diagnosis is consistent with osteopenia. Statistically, 68% of repeat scans fall within 1 SD (+/- 0.010 g/cm2 for AP spine L1-L4) and 1 SD (+/- 0.012 g/cm2 for femur total) FRAX is a trademark of the [employer]'s [place] for Metabolic Bone Disease, a World Health Organization (WHO) Collaborating Center. Electronically signed by: Harrison Bowman MD 08/04/2025 10:20 AM [facility]
--- OUTSIDE RECORDS SUMMARY | 2025-08-04 11:18 | XMS_ITS | Encounter Summary ---
Author Organization [facility] Address [address] [place] [address] Phone Care Team Providers Care Field Checker Name Role Phone Krystle Carlin Unavailable [phone] Deena Huang MD Unavailable Gena Rock MD Unavailable [phone] Diann Dior MD Unavailable Tremayne Mckinnon MD Unavailable Tremayne Dillon DO Unavailable [phone] Shala Meneses MD Unavailable [phone] Wendy Corral PA-C Unavailable Devante Jones MD Unavailable [phone] Shilpi Mcdonald MD Unavailable [phone] Deena Huang MD Primary Care Provider Encounter Details Date Type Department Care Team (Late st Contact Info) Description 07/17/2017 Transcribe Orders [facility] Lab Main [address] [place] [address] Sommer Frazier MD [address] [place], [place] [id number] Other specified disorders of the skin and [...] Care Team (Late st Contact Info) Description 08/26/2025 3:40 PM EST Office Visit [facility] Eye and Ear Cornea Service [address] [place] [address] Rosangela Jimenez MD [address] [place] [address] [email or web address] 08/30/2025 3:30 PM EST Office Visit [facility] [address] [place] [address] Diann Dior MD [address] [place] [address], [address] [place] [address] [email or web address] 01/05/2026 1:30 PM EDT Office Visit [facility] Rheumatology [facility] [address] [place] [address] [place] [address] Gena Rock MD [address] [place] [address], [address] [place] [address] [email or web address] documented as of this encounter Results * (ABNORMAL) Wound culture/smear (07/17/2017 1:30 PM EST) Specimen Source/ Description NARES RIGHT NARIS NARES [facility] Special Requests None [facility] GRAM STAIN NO ORGANISMS SEEN C [facility] Culture/Test Few STAPHYLOCOCCUS AUREUS(A) [facility] Report Status 07/19/2017 FINAL [facility] ORGANISM STAPHYLOCOCCUS AUREUS [facility] Other (Nares) 07/17/2017 1:3 0 PM EST [...] LAB MICROBIOLOGY CULTURE OR DERABLES Final Result [facility] 30 [place] [address] documented in this encounter Visit Diagnoses Diagnosis Other specified disorders of the skin and subcutaneous tissue- Primary Impetigo documented in this encounter Care Teams Field Checker Relationship Specialty Start Date End Date Deena Huang MD [address] [place] [address] PCP - General 06/11/17 Krystle Carlin [place] [address] [place] [address] Historical LMR Provider 06/04/17 2 Deena Huang MD [address] [place] [address] Historical LMR Provider 06/04/17 Gena Rock MD 22 [facility], [facility] [address] [place] [address] Historical LMR Provider 06/04/17 Diann Dior MD 22 [facility], [address] [place] [address] Historical LMR Provider 06/04/17 Tremayne Mckinnon MD [address] [place] [address] Historical LMR Provider 06/04/17 Tremayne Dillon DO [address] [place] [address] [facility] [place] [place] [address] Historical LMR Provider 06/04/17 Shala Meneses MD [address] [place] [address], 2nd [place] [address] Historical LMR Provider 06/04/17 Wendy Corral PA-C [address] [place] [address] [facility], [place] [address] Historical LMR Provider 06/04/17 Devante Jones MD [address] [place] [phone] Historical LMR Provider 06/04/17 2 Shilpi Mcdonald MD [address] [place] [address] [email or web address] Historical LMR Provider 06/04/17 08/26/21 documented as of this encounter Additional Source Comments The information contained in this document represents components of the legal health record. It is not the complete legal health record.[facility]
--- OUTSIDE RECORDS SUMMARY | 2025-08-04 11:20 | XMS_ITS | Encounter Summary ---
Author Organization [facility] Address [address] [place] [address] [place] [address] Phone Care Team Providers Care Intellectual Property Paralegal Name Role Phone RosauraIrlandaGena Hopper MD Unavailable [phone] Diann Dior MD Unavailable Tremayne Dillon DO Unavailable [phone] Wendy Corral PA-C Unavailable Deena Huang MD Primary Care Provider Encounter Details Date Type Department Care Team (Late st Contact Info) Description 05/24/2023 Transcribe Orders Virtual Department 30 [place] [address] Terri Uribe MD [address] [place] [address] [place] [address] Closed head injury, initial encounter (Primary Dx) [...] Description 08/26/2025 3:40 PM EST Office Visit [facility] Eye and Ear Cornea Service [address] [place] [address] Rosangela Jimenez MD [address] [place] [address] [email or web address] 08/30/2025 3:30 PM EST Office Visit [facility] Obstetrics and Gynecology Clinic [address] [place] [address] [place] [address] Diann Dior MD [address] [place] [address], [address] [place] [address] [email or web address] 01/05/2026 1:30 PM EDT Office Visit [facility] Rheumatology Clinic [address] [place] [address] [place] [address] Gena Rock MD [address] [place] [address], [address] [place] [address] [email or web address] documented as of this encounter Visit Diagnoses Diagnosis Closed head injury, initial encounter- Primary documented in this encounter Care Teams Intellectual Property Paralegal Relationship Specialty Start Date End Date Deena Huang MD [address] [place] [address] PCP - General 06/11/17 Gena Rock MD 22 [facility] 203 [place] [address] Historical LMR Provider 06/04/17 Diann Dior MD 22 [facility] 102 [place] [address] Historical LMR Provider 06/04/17 Tremayne Dillon DO 4 [facility] Medicine, [place] [address] Historical LMR Provider 06/04/17 eWndy Corral PA-C 4 [facility]ics [facility], [place] [address] Historical LMR Provider 06/04/17 documented as of this encounter Additional Source Comments The information contained in this document represents components of the legal health record. It is not the complete legal health record.[facility]
--- OUTSIDE RECORDS SUMMARY | 2025-08-04 11:20 | XMS_ITS | Patient Health Record ---
Author Organization [facility] Address [address] [place] [address] Care Team Providers Care Delinquent Tax Collection Assistant Name Role Phone Reina BRAGG, Deena Primary Care Provider Un available Donnie Hernandez Jr Unavailable [phone] Allergies Allergen (clinical drug ingredient) Drug/Non Drug Allergy documented on EMR Reaction Allergy Type Onset Date Status morphine Morphine (uncoded) Unknown Allergy A ctive Substance with sulfonamide structure and antibacterial mechanism of action (substance) Sulfa (uncoded) Unknown Allergy Active Reason For Referral No Information Medications Medication SIG (Take, Route, Frequency, Duration) Notes Start Date End Date Status oxyCODONE-Acetaminophen Active Provigil Active LORazepam Active Gabapentin Active Zofran 4 MG Tablet 1 tablet Orally ever y 8 hours PRN/Nausea; Duration: 30 days 05/07/2013 Active Copaxone Active Promethazine HCl A ctive Zofran Active diazePAM Active Prochlorperazine Act levy Adderall Active Social History Social History Additional Details Category Social Info Options Details Miscellaneous: Marital status: Occupation: Home Problems Problem Type SNOMED Code ICD Code Onset Dates Problem Status W/U Status Risk Notes Problem Gastroparesis (257312353) Gastroparesis (536.3) Active confirmed Problem Fatty liver (221558138) Fatty liver (571.8) Active confirmed Plan Of Treatment No Information Insurance Providers Payer Name Payer Address Payer Phone Subscriber Number Group Number Insured Name Patient Relationship to Insured Coverage Start Date Coverage End Date [facility] [address] [place], [place] [id number] [phone] [id number] RED DEL CID Self - patient is the insured Medical (General) History Medical History History ICD Code MS nausea Denies NM,DM,CVA,Lung disease,renal dise ase arthritis anxiety Clostridium difficile infection Surgical History Surgery Date(Month/Year) Disc Surgery L4-5 Appendix R knee,L knee Vein stripped
--- OUTSIDE RECORDS SUMMARY | 2025-08-04 11:20 | XMS_ITS | Encounter Summary ---
Author Organization [facility] Address [facility] [employer] [facility] [address] [place] [address] Phone Care Team Providers Care A And P Technician Name Role Phone Gena Rock MD Unavailable [phone] Diann Dior MD Unavailable Tremayne Dillon DO Unavailable Wendy Corral PA-C Unavailable Deena Huang MD Primary Care Provider Encounter Details Date Type Department Care Team (Late st Contact Info) Description 11/15/2023 Ancillary Orders [facility] - [address] [address] Terri Uribe MD [address] [place] [address] [place] [address] Multiple sclerosis (Primary Dx) Social History Tobacco [...] Description 08/26/2025 3:40 PM EST Office Visit [facility] Eye and Ear Cornea Service [address] [place] [address] Rosangela Jimenez MD [address] [place] [address] [email or web address] 08/30/2025 3:30 PM EST Office Visit [facility] Obstetrics and Gynecology Clinic [address] [place] [address] [place] [address] Diann Dior MD [address] [place] [address], [address] [place] [address] 01/05/2026 1:30 PM EDT Office Visit [facility] Rheumatology Clinic [address] [place] [address] [place] [address] Gena Rock MD [address] [place] [address], [address] [place] [address] [phone] (work) [email or web address] documented as of this encounter Results [...] clinician's provided indication for this examination in [facility]: Other Indication (Please use free text); multiple [...] clinician's provided indication for this examination in [facility]:Other Indication (Please use free text); multiple sclerosis REQUESTED INDICATION: Other Indication (Please use free text); multiplesclerosis COMPARISON: None FINDINGS: PELVIS: Pelvic ring intact. No displaced fracture. Degenerative changes ofthe lower lumbar spine, sacroiliac joints, and pubic symphysis. RIGHT HIP: Mild joint space narrowing. LEFT HIP: Mild joint space narrowing. IMPRESSION: Mild degenerative changes. Mild to moderate lower lumbar spine degenerative change. Terri Uribe MD IMG XR PELVIS Final Res ult * XR HIP 2-3 VW LEFT (11/18/2023 [...] clinician's provided indication for this examination in [facility]: Other Indication (Please use free text); multiple [...] clinician's provided indication for this examination in [facility]:Other Indication (Please use free text); multiple sclerosis REQUESTED INDICATION: Other Indication (Please use free text); multiplesclerosis COMPARISON: None FINDINGS: PELVIS: Pelvic ring intact. No displaced fracture. Degenerative changes ofthe lower lumbar spine, sacroiliac joints, and pubic symphysis. RIGHT HIP: Mild joint space narrowing. LEFT HIP: Mild joint space narrowing. IMPRESSION: Mild degenerative changes. Mild to moderate lower lumbar spine degenerative change. Terri Uribe MD IMG XR PELVIS Final Res ult documented in this encounter Visit Diagnoses Diagnosis Multiple sclerosis- Primary Multiple sclerosis Multiple sclerosis documented in this encounter Care Teams A And P Technician Relationship Specialty Start Date End Date Deena Huang MD [address] [place] [address] PCP - General 06/11/17 Gena Rock MD 22 [facility], [address] [place] [address] Historical LMR Provider 06/04/17 Diann Dior MD 22 [facility], [address] [place] [address] Historical LMR Provider 06/04/17 Tremayne Dillon DO 4 [facility] Orth[facility] Medicine, [facility] [place] [address] [email or web address] Historical LMR Provider 06/04/17 Wendy Corral PA-C 4 [facility], [facility] [place] [address] [email or web address] Historical LMR Provider 06/04/17 documented as of this encounter Additional Source Comments The information contained in this document represents components of the legal health record. It is not the complete legal health record.[facility]
--- OUTSIDE RECORDS SUMMARY | 2025-08-04 11:20 | XMS_ITS | Encounter Summary ---
Author Organization [facility] Address [address] [place] [address] Phone Care Team Providers Care Locomotive Repairer Diesel Name Role Phone Krystle Carlin Unavailable [phone] Deena Huang MD Unavailable [phone] Gena Rock MD Unavailable [phone] Diann Dior MD Unavailable Tremayne Mckinnon MD Unavailable Tremayne Dillon DO Unavailable Shala Meneses MD Unavailable [phone] Wendy Corral PA-C Unavailable [phone] Devante Jones MD Unavailable [phone] Shilpi Mcdonald MD Unavailable [phone] Deena Huang MD Primary Care Provider Encounter Details Date Type Department Care Team (Late st Contact Info) Description 09/23/2017 Transcribe Orders [facility] Specimen Processing 30 [place] [address] Sommer Frazier MD [address] [place], [place] [id number] Impetigo (Primary Dx) Social History Tobacco Use [...] Description 08/26/2025 3:40 PM EST Office Visit [facility] Eye and Ear Cornea Service [address] [place] [address] Rosangela Jimenez MD [address] [place] [address] [email or web address] 08/30/2025 3:30 PM EST Office Visit [facility] Obstetrics and Gynecology Clinic [address] [place] [address] Diann Dior MD [address] [place] [address], [address] [place] [address] 01/05/2026 1:30 PM EDT Office Visit [facility] Rheumatology Clinic [address] [place] [address] Gena Rock MD [address] [place] [address], [address] [place] [address] [email or web address] documented as of this encounter Results * (ABNORMAL) Wound culture/smear (09/23/2017 9:00 AM EST) Specimen Source/ Description NASAL SWAB NASAL [facility] Special Requests None [facility] GRAM STAIN NO CELLS OR ORGANISMS [facility] Culture/Test MIXED ORGANISMS RESEMBLING CUTANEOUS KALEB(A) [facility] Report Status 09/25/2017 FINAL [facility] Other (Nasal) 09/23/2017 9:0 0 AM EST 09/23/2017 5:54 PM EST us Sommer Frazier MD LAB MICROBIOLOGY CULTURE OR DERABLES Final Result [facility] [address] [place] [address] documented in this encounter Visit Diagnoses Diagnosis Impetigo- Primary documented in this encounter Care Teams Locomotive Repairer Diesel Relationship Specialty Start Date End Date Deena Huang MD [address] [place] [address] PCP - General 06/11/17 Krystle Carlin PA [facility] [place] [address] Historical LMR Provider 06/04/17 2 Deena Huang MD [address] [place] [address] Historical LMR Provider 06/04/17 Gena Rock MD [address] [place] [address] Historical LMR Provider 06/04/17 Diann Dior MD [address] [place] [address] Historical LMR Provider 06/04/17 Tremayne Mckinnon MD [address] [place] [address] Historical LMR Provider 06/04/17 Tremayne Dillon DO 4 [facility]opedics [facility] Medicine, [place] [address] [email or web address] Historical LMR Provider 06/04/17 Shala Meneses MD 15 [facility], 2nd [place] [address] Historical LMR Provider 06/04/17 Wendy Corral PA-C 4 [facility], [place] [address] [email or web address] Historical LMR Provider 06/04/17 Devante Jones MD [address] [place] [phone] Historical LMR Provider 06/04/17 2 Shilpi Mcdonald MD [address] [address] [email or web address] Historical LMR Provider 06/04/17 08/26/21 documented as of this encounter Additional Source Comments The information contained in this document represents components of the legal health record. It is not the complete legal health record.[facility]
--- OUTSIDE RECORDS SUMMARY | 2025-08-04 11:20 | XMS_ITS | Clinical Summary ---
Author Organization [facility] Address [address] [place] [address] [place] [address] Phone Care Team Providers Care Financial Reporting Specialist Name Role Phone RosauraIrlandaGena Hopper MD Unavailable Diann Dior MD Unavailable Tremayne Dillon DO Unavailable [phone] Wendy Corral PA-C Unavailable Deena Huang MD Primary Care Provider Allergies [...] daily. 90 capsule 4 09/22/19 25 Active Active Problems Problem Noted Date Diagnosed Date Raynaud's disease without gangrene 07/03/2024 Assessment & Plan (07/08/2025 9:38 AM EST): Keep warm, dress in layers. Optimize stress management strategies. Avoid vasoconstrictors in OTC products for cold/flu and sinus. Assessment & Plan (12/31/2024 9:02 AM EDT): Keep warm, dress in layers. Optimize stress management strategies. Avoid vasoconstrictors in OTC products for cold/flu and sinus. Assessment & Plan (07/03/2024 10:37 AM EST): Keep warm, dress in layers. Optimize stress management strategies. Avoid vasoconstrictors in OTC products for cold/flu and sinus. Chronic prescription opiate use 07/03/2024 Assessment & Plan (07/08/2025 9:38 AM EST): Take exactly as prescribed, try to limit frequency by employing non-for pharmacologic measures such as topical creams, warm packs, patches, regular relaxation/mediation/positive imagery sessions etc. Build up regular exercise routine up to the goal of 30-45 minutes daily. Monitor for increasing shortness of breath, reduced respiratory drive, increasing constipation Assessment & Plan (12/31/2024 9:02 AM EDT): [...] increasing constipation Osteopenia 07/03/2023 Assessment & Plan (07/08/2025 9:38 AM EST): Continue proper calcium and vitamin D supplementation + daily weightbearing exercises + fall and fracture prevention strategies. Interval BMD requested. Assessment & Plan (01/31/2025 6:51 PM EDT): [...] strategies. Cervical spondylosis 01/03/2023 Assessment & Plan (07/08/2025 9:59 AM EST): Proper posture, neck support during the day and for nighttime. Use warm packs followed by gentle, regular exercises. Avoid prolonged bending or neck extension. Gentle massage, traction may provide additional benefit. Assessment & Plan (01/15/2023 10:33 AM EDT): [...] involving multiple joints 03/02/2019 Assessment & Plan (07/08/2025 9:37 AM EST): Joint protection, energy conservation. Gentle, regular exercise Avoid falls, injuries, overuse. Topical cream versus patch 2-3 times daily or at least at bedtime x 3 wks Consider formal physical therapy if not better or worse. Continue [employer] via cancer center offered by a cyber instructor [employer] Assessment & Plan (12/31/2024 9:02 AM EDT): Joint protection, energy conservation. Gentle, regular exercise Avoid falls, injuries, overuse. Topical cream versus patch 2-3 times daily or at least at bedtime x 3 wks Consider formal physical therapy if not better or worse. Continue [employer] via cancer center offered by a cyber instructor [employer] Assessment & Plan (07/03/2024 10:40 AM EST): Joint protection, energy conservation. Gentle, regular exercise Avoid falls, injuries, overuse. Topical cream versus patch 2-3 times daily or at least at bedtime x 3 wks Consider formal physical therapy if not better or worse. Continue [employer] via cancer center offered by a cyber instructor [employer] Assessment & Plan (01/01/2024 10:21 AM EDT): Joint protection, energy conservation. Gentle, regular exercise Avoid falls, injuries, overuse. Topical cream versus patch 2-3 times daily or at least at bedtime x 3 wks Consider formal physical therapy if not better or worse. Continue [employer] via cancer center offered by a cyber instructor [employer] Assessment & Plan (07/03/2023 11:00 AM EST): Joint protection, energy conservation. Gentle, regular exercise Avoid falls, injuries, overuse. Topical cream versus patch 2-3 times daily or at least at bedtime x 3 wks Consider formal physical therapy if not better or worse. Continue [employer] via cancer center offered by a cyber instructor [employer]ja Assessment & Plan (03/21/2022 8:33 AM EDT): Joint protection, energy conservation. Gentle, regular exercise Avoid falls, injuries, overuse. Topical cream versus patch 2-3 times daily or at least at bedtime x 3 wks Consider formal physical therapy if not better or worse. Continue [employer] via cancer center offered by a cyber instructor [employer]ja Assessment & Plan (10/06/2021 10:25 AM EST): Joint protection, energy conservation. Gentle, regular exercise Avoid falls, injuries, overuse. Topical cream versus patch 2-3 times daily or at least at bedtime x 3 wks Consider formal physical therapy if not better or worse. Continue [employer] via cancer center offered by a cyber instructor [employer]ja Assessment & Plan (04/12/2021 10:22 PM EDT): Joint protection, energy conservation. Gentle, regular exercise Avoid falls, injuries, overuse. Topical cream versus patch 2-3 times daily or at least at bedtime x 3 wks Consider formal physical therapy if not better or worse. Continue [employer] aer[employer] via cancer center offered by a cyber instructor [employer] Assessment & Plan (10/06/2020 9:01 AM EST): Joint protection, energy conservation. Gentle, regular exercise Avoid falls, injuries, overuse. Topical cream versus patch 2-3 times daily or at least at bedtime x 3 wks Consider formal physical therapy if not better or worse. She plans to join [employer] via cancer center offered by a cyber instructor [employer] Assessment & Plan (04/07/2020 8:49 AM EDT): Joint protection, energy conservation. Gentle, regular exercise Avoid falls, injuries, overuse. Topical cream versus patch 2-3 times daily or at least at bedtime x 3 wks Consider formal physical therapy if not better or worse. She plans to join [employer] via cancer center offered by a cyber instructor [employer] Assessment & Plan (10/28/2019 1:40 PM EDT): Joint protection, energy conservation. Gentle, regular exercise Avoid falls, injuries, overuse. Topical cream versus patch 2-3 times daily or at least at bedtime x 3 wks Consider formal physical therapy if not better or worse. She plans to join [employer] via cancer center offered by a cyber instructor [employer] Assessment & Plan (03/03/2019 6:18 [...] NSAID long-term use 03/02/2019 Assessment & Plan (07/08/2025 9:38 AM EST): Take the lowest dose, with least frequency, for shortest time. Remember to take it always with food. Favor topical over oral preparations. Assessment & Plan (12/31/2024 9:02 AM EDT): [...] preparations. Multiple sclerosis 09/01/2018 Assessment & Plan (07/08/2025 9:38 AM EST): Continue Copaxone, Keppra and gabapentin as prescribed. Close follow-up with treating neurologist and PT as scheduled Assessment & Plan (12/31/2024 9:02 AM EDT): [...] scheduled Sicca syndrome 08/26/2017 Assessment & Plan (07/08/2025 9:37 AM EST): Keep well-hydrated. Avoid spicy and acidic foods. Diligent eyes and mouth hygiene. Regular ocular and dental checkups. Assessment & Plan (12/31/2024 9:01 AM EDT): [...] serum level in optimal range: 40-45 ng/ml senior living prescription opiate use 10/06/2020 03/21/2022 Assessment & [...] better or worse. She plans to join [employer] aerobics via cancer center offered by a cyber instructor [employer]ja Plantar fasciitis, right 09/01/201806/2024 Left [...] Encounters Date Type Department Care Team Description 07/08/2025 10:16 AM EST - 07/08/2025 11:59 PM EST Hospital Encounter [facility], [place] - [place] [address] [place] [address] Gena Rock MD Discharge Disposition: Home or Self Care 07/08/2025 9:30 AM EST Office Visit [facility] [address] [place] [address] Gena Rock MD Sicca syndrome (Primary Dx); Primary osteoarthritis involving multiple joints; Osteopenia of multiple sites; Raynaud's disease without gangrene; Multiple sclerosis; Chronic prescription opiate use; NSAID long-term use; Cervical spondylosis 06/16/2025 2:00 PM EDT Office Visit [facility] [address] [place] [address] Marciano Bhakta PA-C Primary osteoarthritis of right knee (Primary Dx); Primary osteoarthritis of left knee 06/09/2025 2:00 PM EDT Office Visit [facility] [address] [place] [address] Marciano Bhakta PA-C Primary osteoarthritis of right knee (Primary Dx); Primary osteoarthritis of left knee 06/02/2025 2:00 PM EDT Office Visit [facility] [address] [place] [address] Marciano Bhakta PA-C Primary osteoarthritis of right knee (Primary Dx); Primary osteoarthritis of left knee from Last 3 Months Family History Medical [...] Sign Reading Time Taken Comments Blood Pressure 124/84 07/08/2025 9:37 AM EST Pulse 77 07/08/2025 9:37 AM EST Temperature 36.7 C (98 F) 05/19/2023 4:32 PM EDT Respiratory Rate 16 05/19/2023 4:32 PM EDT Oxygen Saturation 99% 07/08/2025 9:37 AM EST Inhaled Oxygen Concentration - - Weight 71.9 kg (158 lb 9.6 oz) 07/08/2025 9:37 A M EST Height 167.6 cm (5' 6 ) 07/08/2025 9:37 AM EST Body Mass Index 25.6 07/08/2025 9:37 AM EST Plan of Treatment Upcoming Encounters Date Type Department Care Team (Late st Contact Info) Description 08/26/2025 3:40 PM EST Office Visit [facility] [address] [place] [address] Rosangela Jimenez MD [address] [place] [address] [email or web address] 08/30/2025 3:30 PM EST Office Visit [facility] [address] [place] [address] Diann Dior MD [address] [place] [address], [address] [place] [address] [email or web address] 01/05/2026 1:30 PM EDT Office Visit [facility] [address] [place] [address] Gena Rock MD [address] [facility], [address] [place] [address] [email or web address] Health Maintenance Due Date Last Done Comments [...] SCREENING (On ce After 26 Yrs) Completed 07/08/2025 HEPATITIS A VACCINES Aged Out No long [...] Procedure Name Priority Date/Time Associated Diagnosis Comments XR FOOT 3 OR MORE VIEWS (RIGHT) Routine 07/08/2025 10:43 AM EST Primary osteoarthritis involving multiple joints BD DXA SCREENING Routine 12/31/2024 10:2 9 AM EDT Osteopenia PAP TEST Routine 10/28/2023 12:00 AM EDT ENDOSCOPY, COLON 10/09/2022 1:25 PM EST LIPID PANEL Routine 01/19/2021 5:20 PM EDT Routine health maintenance from Last 3 Months or Most Recently Relevant to Health Maintenance Results * XR FOOT 3 OR MORE VIEWS (RIGHT) (07/08/2025 10:43 AM EST) Anatomical Region Laterality Modality Foot Right Computed Radiogr aphy 07/08/2025 2:28 PM EST Impressions 07/08/2025 2:29 PM EST Severe first MTP osteoarthritis with prominent osteophytic remodeling and joint space narrowing, with similar appearance to the study of 10/05/2021. Adjacent pain marker. There is mild mineralization within the adjacent medial soft tissues. Correlate with any history of prior gout. Lesser mild degenerative changes elsewhere within the forefoot and midfoot. Small plantar calcaneal spur. No visualized acute, displaced fracture. Narrative 07/08/2025 2:29 PM EST XR FOOT 3 OR MORE VIEWS (RIGHT) Referring clinician's provided indication for this examination in Epic: Pain; ev 1st MTP COMPARISON: XR FOOT 3 OR MORE VIEWS (RIGHT) 2021- Procedure Note Cayden Tomas MD - 07/08/2025 XR FOOT 3 OR MORE VIEWS (RIGHT) Referring clinician's provided indication for this examination in Epic:Pain; ev 1st MTP COMPARISON: XR FOOT 3 OR MORE VIEWS (RIGHT) IMPRESSION: Severe first MTP osteoarthritis with prominent osteophytic remodeling andjoint space narrowing, with similar appearance to the study of 10/05/2021.Adjacent pain marker. There is mild mineralization within the adjacentmedial soft tissues. Correlate with any history of prior gout. Lesser milddegenerative changes elsewhere within the forefoot and midfoot. Smallplantar calcaneal spur. No visualized acute, displaced fracture. Gena Rock MD IMG XR LOWER EXTREMITY F inal Result * Pap Test (10/28/2023 12:00 AM EDT) Report [address] [address] Director Pharmacology: Shilpi Brumfield MD [employer] Cytology Report FINAL DIAGNOSIS A. PAP SMEAR [...] 59, 66, 68) Note: Testing performed by [employer] HR-HPV analysis. Clinical correlation is advised. This HPV test was performed at [facility], [address] [place] [address]. This test has been FDA approved for both SurePath and ThinPrep cervical cytology specimens. The accuracy and precision of this test for all other specimen sources has been verified in the Cytopathology Laboratory of the [facility] and has not been cleared or approved by the U.S. Food and Drug Administration. Clinical correlation is advised. CLINICAL HISTORY Date of Last Menstrual Period: Not Provided Menstrual History: Post Menopausal Other Clinical Conditions: Screening Pap SPECIMEN SOURCE A: PAP SMEAR (SUREPATH) CE Patient Name: NADIRA DAVIS : 1960 (Age: 63) Sex: F Institution: [facility] Location: [facility] Date of Collection: 10/28/2023 Date of Reported: 11/01/2023 10:47 Results to: Diann Dior MD [facility] Final Diagnosis A. PAP SMEAR (SUREPATH) CE: SPECIMEN ADEQUACY: Satisfactory for evaluation; transformation zone present. INTERPRETATION: NEGATIVE FOR INTRAEPITHELIAL LESION OR MALIGNANCY. Atrophy. [facility] Results\Inter pretation A. PAP SMEAR (SUREPATH) CE: Human Papilloma Virus TestNEGATIVE for high-risk Human Papilloma Virus types 16, 18, 45 and the Other high risk probe set (Includes 31, 33, 35, 39, 51, 52, 56, 58, 59, 66, 68)Note: Testing performed by [email or web address] HR-HPV analysis. Clinical correlation is advised. This HPV test was performed at [facility], [address] [place] [address]. This test has been FDA approved for both SurePath and ThinPrep cervical cytology specimens. The accuracy and precision of this test for all other specimen sources has been verified in the Cytopathology Laboratory of the [facility] and has not been cleared or approved by the U.S. Food and Drug Administration. Clinical correlation is advised. [facility] Conversion Type (Conversion Source) 10/28/2023 10/29/2023 8:10 AM EDT us Diann Dior MD CYTOLOGY ORDERABLES Edited Re sult - Final [facility] [address] [place] [address] * ENDOSCOPY, COLON (10/09/2022 1:25 PM EST) Narrative Transcriptions Ruchi Dong MD - 10/09/2022 1:25 PM EST [facility] Patient Name: Nadira Davis Procedure Date: 10/09/2022 [...] High fiber diet indefinitely. Ruchi Dong MD [id number] Ruchi Dnog MD 10/09/2022 2:31:58 PM This report has been electronically signed. I was present during the entire viewing portion of this exam. Number of Addenda: 0 Note Initiated On: 10/09/2022 1:25 PM Deena Huang MD GI PROCEDURE ORDERABLES Final Result * (ABNORMAL) Lipid panel (01/19/2021 5:20 PM EDT) CHOLESTEROL 217(H) <200 mg/dL [facility] TRIGLYCERIDES 60 35 - 150 mg/dL [facility] HDL 89(H) 40 - 80 mg/dL [facility] CALCULATED LDL 116 50 - 129 mg/dL [facility] VLDL 12 mg/dL [facility] CARDIAC RISK RATIO 2.4 0.0 - 4.0 [facility] 01/19/2021 5:20 PM EDT 01/19/2021 5:32 PM EDT us Ema Will MD, MSc LAB BLOOD BKR ORDERABLES Fin al Result [facility] [address] [place] [phone] from Last 3 Months or Most Recently Relevant to Health Maintenance Insurance [facility] [place] [id number] [place] B [address] [place] [address] [place] MEDICARE [place] A & B [place] B [address] [place] [id number] [place] [address] MEDICARE PART A & B [facility] MEDICARE PART A & B Care Teams Financial Reporting Specialist Relationship Specialty Start Date End Date Deena Huang MD [address] [place] [address] PCP - General 06/11/17 Gena Rock MD [address] [place] [address] Historical LMR Provider 06/04/17 Diann Dior MD [address] [place] [phone] [email or web address] Historical LMR Provider 06/04/17 Tremayne Dillon DO [facility], [facility] [place] [address] [email or web address] Historical LMR Provider 06/04/17 Wendy Corral PA-C [facility], [facility] [place] [address] [email or web address] Historical LMR Provider 06/04/17 Additional Source Comments The information contained in this document represents components of the legal health record. It is not the complete legal health record.[facility]
--- OUTSIDE RECORDS SUMMARY | 2025-08-04 11:21 | XMS_ITS | Encounter Summary ---
Author Organization [facility] Address [facility] [employer] [facility] [address] [place] [address] Phone Care Team Providers Care Manager Service Desk Name Role Phone Gena Rock MD Unavailable [phone] Diann Dior MD Unavailable [phone] Tremayne Dillon DO Unavailable Wendy Corral PA-C Unavailable [phone] Deena Huang MD Primary Care Provider Encounter Details Date Type Department Care Team (Late st Contact Info) Description 10/09/2022 Procedure Pass [facility] [address] [place] [address] Social History Tobacco Use Types Packs/Day Years [...] Description 08/26/2025 3:40 PM EST Office Visit [facility] [address] [place] [address] Rosangela Jimenez MD [address] [place] [address] [email or web address] 08/30/2025 3:30 PM EST Office Visit [facility] [address] [place] [address] Diann Dior MD [address] [place] [phone] [email or web address] 01/05/2026 1:30 PM EDT Office Visit [facility] [address] [place] [address] Gena Rock MD [address] [place] [address] [email or web address] documented as of this encounter Visit Diagnoses Not on filedocumented in this encounter Care Teams Manager Service Desk Relationship Specialty Start Date End Date Deena Huang MD [address] [place] [address] PCP - General 06/11/17 Gena Rock MD [address] [place] [address] Historical LMR Provider 06/04/17 Diann Dior MD [address] [place] [address] Historical LMR Provider 06/04/17 Tremayne Dillon DO [address] [place] [address] [facility] [place] [address] [email or web address] Historical LMR Provider 06/04/17 Wendy Corral PA-C [facility], [place] [address] [email or web address] Historical LMR Provider 06/04/17 documented as of this encounter Additional Source Comments The information contained in this document represents components of the legal health record. It is not the complete legal health record.[facility]
== END 2025-08-04 09:44 ==
LOC: HO.MAMMO 09:43
PROVIDERS: Absent Provider Internal Medicine Rheumatology; PCP Family Medicine; Visit Provider Family Medicine
DX: M85.89 Other specified disorders of bone density and structure, multiple sites (principal)
CPT/HCPCS: 77080

== ENCOUNTER → 2025-08-04 10:00 | Outpatient (BNV) | payer MEDICARE, MEDICAID, SELFPAY | PROVIDERS: Absent Provider Internal Medicine Rheumatology; PCP Family Medicine; Visit Provider Radiology Diagnostic Radiology | DX: E28.39 Other primary ovarian failure (principal) | CPT/HCPCS: 77080 ==